=== PATIENT | female | born 1990 | race Two or more races ===

== ENCOUNTER 2021-08-16 15:39 | Inpatient (IN) | payer OTHER ==
[~2021-08-16] VITALS: Ht 154.9 cm; Wt 68.0 kg
[2021-08-16 16:27] LABS: BASOPHILS % (AUTO) 0.2 % (0.0-5.0); EOSINOPHILS % (AUTO) 0.3 % (0.0-8.0); HEMATOCRIT 32.1 % (36-48); LYMPHOCYTES % (AUTO) 23.6 % (21.0-51.0); MEAN CORPUSCULAR HEMOGLOBIN 28.9 pg (27.0-33.0); MEAN CORPUSCULAR VOLUME 87.5 fL (79-99); MONOCYTES % (AUTO) 5.6 % (3.0-13.0); NEUTROPHILS % (AUTO) 68.9 % (40.0-77.0); PLATELET COUNT (AUTO) 245 K/uL (130-400); RED BLOOD CELL COUNT(AUTO) 3.67 MIL/uL (4.00-5.50); RED CELL DISTRIBUTION WIDTH 13.8 % (11.0-15.5); WHITE BLOOD COUNT (AUTO) 11.2 K/uL (4.8-10.8)
[2021-08-16 16:28] LABS: APPEARANCE,URINE Clear (CLEAR); BILIRUBIN,URINE Negative (NEGATIVE); COLOR,URINE Yellow (YELLOW); GLUCOSE, URINE (UA) Negative (NEGATIVE); KETONES,URINE 40 mg/dL (NEGATIVE); LEUKOCYTE ESTERASE ,URINE Trace (NEGATIVE); NITRATE,URINE Negative (NEGATIVE); OCCULT BLOOD,URINE Negative (NEGATIVE); PH,URINE 6.5 (5.0-8.0); PROTEIN,URINE Negative (NEGATIVE)
[2021-08-16] MEDS ORDERED: INDOMETHACIN 25 MG CAP PO SCH (16:30)
[2021-08-16 16:57] LABS: BACTERIA,URINE Rare /HPF (None Seen); MUCUS,URINE None Seen LPF (None Seen); RBC,URINE 0-1 /HPF (0-1); SQUAMOUS EPITHELIAL CELL,UR 0-2 /HPF (0-2)
[2021-08-16] MEDS ORDERED: LACTATED RINGERS 1000ML 1,000 ML IV SCH (18:00)
[2021-08-16] MEDS ORDERED: MAGNESIUM SULFATE 40GM/1000ML 1,000 ML IV ONE (19:21)
[2021-08-16] MEDS ORDERED: MAGNESIUM 4GM PREMIX 100ML 100 ML IV ONE (19:21)
[2021-08-16] MEDS ORDERED: MAGNESIUM SULFATE 40GM/1000ML 1,000 ML IV PRN (19:30)
[2021-08-16] MEDS ORDERED: MAGNESIUM 4GM PREMIX 100ML 100 ML IV SCH (19:30)
[2021-08-16] MEDS ORDERED: CALCIUM GLUC 1GM/10ML VIAL IV PRN (19:30)
[2021-08-16] MEDS ORDERED: MEPERIDINE-PF 50 MG/ML SYG ONE (19:39)
[2021-08-16] MEDS ORDERED: PROMETHAZINE HCL 25 MG/ML 1ML AMPULE IM SCH (20:30)
[2021-08-16] MEDS ORDERED: MEPERIDINE-PF 50 MG/ML SYG IVP SCH (20:30)
[2021-08-16] MEDS ORDERED: AZITHROMYCIN 250 MG TABLET PO ONE (21:00)
[2021-08-16] MEDS: INDOMETHACIN 25 MG CAP PO SCH (23:40)
[2021-08-17] MEDS: INDOMETHACIN 25 MG CAP PO SCH ×4 (04:59→23:00)
[2021-08-17 07:20] VITALS: BP 92/51
[2021-08-17 09:53] LABS: RAPID PLASMA REAGIN NONREACTIVE (NONREACTIVE)
[2021-08-17] MEDS ORDERED: ACETAMINOPHEN 325 MG TAB PO PRN (22:30)
[2021-08-18 06:12] LABS: HEPATITIS Bs ANTIGEN SCREEN P Negative (Negative)
== END 2021-08-18 00:54 | disposition short-term general hospital (02) | DRG 831 ==
LOC: OBSVTOIN 15:39 → LDH 15:39
PROVIDERS: ADMIT Obstetrics & Gynecology; ATTEND Obstetrics & Gynecology
DX: O34.32 Maternal care for cervical incompetence, second trimester (principal); O60.02 Preterm labor without delivery, second trimester; O30.042 Twin pregnancy, dichorionic/diamniotic, second trimester; Z20.822 Contact with and (suspected) exposure to COVID-19; O65.5 Obstructed labor due to abnormality of maternal pelvic organs; Z3A.20 20 weeks gestation of pregnancy
CPT/HCPCS: 36415; 76810; 81001; 83735; 85025; 86592; 86701; 86850; 86900; 86901; 87340; 87390; 87635; A4314; A4344; G0378; J2175; J3475; J7120